=== PATIENT | male | born 1975 | race Hispanic/Latino ===

== ENCOUNTER 2017-10-20 17:24 | Emergency (ER) | payer SELFPAY ==
[~2017-10-20] VITALS: Ht 167.6 cm; Wt 83.6 kg
[2017-10-20 18:13] VITALS: BP 125/86
== END 2017-10-20 18:13 | disposition home or self-care (01) | DRG 603 ==
LOC: ED 17:24
PROC: 0H94XZZ Drainage of Neck Skin, External Approach (ICD-10-PCS; principal; 2017-10-20)
DX: L02.11 Cutaneous abscess of neck (principal)

== ENCOUNTER 2019-09-25 08:38 | Emergency (ER) | payer SELFPAY ==
[~2019-09-25] VITALS: Ht 167.6 cm; Wt 88.6 kg
[2019-09-25] MEDS ORDERED: VOLTAREN1%GEL TOP (09:35)
[2019-09-25 09:47] VITALS: BP 142/73
== END 2019-09-25 09:58 | disposition home or self-care (01) | DRG 556 ==
LOC: ED 08:38
DX: M25.562 Pain in left knee (principal)
CPT/HCPCS: L1830